=== PATIENT | male | born 1985 | race Caucasian/White ===

== ENCOUNTER 2016-04-19 20:24 | Emergency (ER) | payer MEDICAID, OTHER ==
[~2016-04-19] VITALS: Ht 190.5 cm; Wt 145.1 kg
[2016-04-19 21:40] LABS: Basophils # (auto) 0 uL; Basophils % (auto) 0.2 % (0.0-2.0); Eosinophils # (auto) 0.2 uL; Eosinophils % (auto) 2.3 % (0.0-7.0); Hematocrit 48.1 % (41.0-53.0); Hemoglobin 16.1 g/dL (13.5-17.5); Lymphocytes # (auto) 1.1 uL; Lymphocytes % (auto) 12.2 % (10.0-50.0); Mean Corpuscular Hemoglobin 28.3 pg (28.0-32.0); Mean Corpuscular Hgb Conc. 33.4 g/dL (32.0-36.0); Mean Corpuscular Volume 84.7 fL (80.0-100.0); Mean Platelet Volume 8.4 fL (7.4-10.4); Monocytes # (auto) 0.1 uL; Monocytes % (auto) 1.6 % (0.0-12.0); Neutrophils # (auto) 7.6 uL; Neutrophils % (auto) 83.7 % (37.0-80.0); Platelet Count (auto) 288 10^3/uL (140-450); Red Cell Distribution Width 13.5 % (11.6-16.0); White Blood Cell 9.1 10^3/uL (4.4-10.8)
[2016-04-19 21:49] LABS: Albumin 3.9 g/dL (3.4-5.0); BUN/Creatinine Ratio 12.4; Calcium 8.5 mg/dL (8.5-10.1); Potassium 3.9 mmol/L (3.5-5.1)
[2016-04-19 21:51] LABS: Bilirubin, Total 0.4 mg/dL (0.2-1.0); Total Protein 7.6 g/dL (6.4-8.2)
[2016-04-20 03:15] VITALS: BP 130/75
== END 2016-04-20 03:40 | disposition home or self-care (01) ==
LOC: ER 20:29
DX: K52.9 Noninfective gastroenteritis and colitis, unspecified (principal); Z90.49 Acquired absence of other specified parts of digestive tract
CPT/HCPCS: 36415; 80053; 85025

== ENCOUNTER 2016-10-02 17:02 | Emergency (ER) | payer MEDICAID, OTHER ==
[~2016-10-02] VITALS: Ht 190.5 cm; Wt 147.4 kg
[2016-10-02 17:09] VITALS: BP 130/80
== END 2016-10-02 17:44 | disposition home or self-care (01) ==
LOC: ER 17:05
DX: S60.561A Insect bite (nonvenomous) of right hand, initial encounter (principal); W57.XXXA Bitten or stung by nonvenomous insect and other nonvenomous arthropods, initial encounter; Y93.89 Activity, other specified; Y99.8 Other external cause status; Y92.89 Other specified places as the place of occurrence of the external cause

== ENCOUNTER 2021-01-27 01:34 | Emergency (ER) | payer SELFPAY ==
[~2021-01-27] VITALS: Ht 190.5 cm; Wt 166.9 kg
[2021-01-27 05:25] VITALS: BP 133/90
== END 2021-01-27 05:42 | disposition home or self-care (01) ==
LOC: ER 01:35
DX: J06.9 Acute upper respiratory infection, unspecified (principal); R09.81 Nasal congestion; R51.9 Headache, unspecified; R53.83 Other fatigue; E66.9 Obesity, unspecified; Z68.41 Body mass index [BMI] 40.0-44.9, adult; Z90.49 Acquired absence of other specified parts of digestive tract; Z20.822 Contact with and (suspected) exposure to COVID-19
CPT/HCPCS: 36415; 71045; 87426; 87804

== ENCOUNTER 2022-12-18 11:31 | Emergency (ER) | payer OTHER ==
[~2022-12-18] VITALS: Ht 190.5 cm; Wt 179.6 kg
[2022-12-18 12:27] LABS: Chloride 109 mmol/L (98-107); Potassium 3.9 mmol/L (3.5-5.1); Sodium 140 mmol/L (136-145)
[2022-12-18 12:28] LABS: Anion Gap 6 (5-15); Calcium 9.1 mg/dL (8.7-10.4); Carbon Dioxide 25 mmol/L (20-30)
[2022-12-18 12:30] LABS: Basophils # (auto) 0.1 10 ^3/uL (0-0.2); Basophils % (auto) 0.7 % (0.0-2.0); Eosinophils # (auto) 0.4 10 ^3/uL (0-0.8); Eosinophils % (auto) 3.8 % (0.0-7.0); Hematocrit 48.2 % (41.0-53.0); Lymphocytes # (auto) 2.2 10 ^3/uL (0.4-5.4); Mean Corpuscular Hemoglobin 27.8 pg (28.0-32.0); Mean Corpuscular Hgb Conc. 33.2 g/dL (32.0-36.0); Mean Corpuscular Volume 83.8 fL (80.0-100.0); Monocytes # (auto) 0.6 10 ^3/uL (0-1.3); Monocytes % (auto) 5.8 % (0.0-12.0); Neutrophils # (auto) 6.7 10 ^3/uL (1.6-8.6); Neutrophils % (auto) 67.7 % (37.0-80.0); Nucleated Red Blood Cells % 0.1 %; Red Blood Cells 5.75 10^6/uL (4.5-5.90); Red Cell Distribution Width 14.3 % (11.8-14.3); White Blood Cell 9.9 10^3/uL (4.4-10.8)
[2022-12-18 12:33] LABS: BUN/Creatinine Ratio 9.8 (10.0-20.0); Blood Urea Nitrogen 9 mg/dL (9-23); Glucose 108 mg/dL (74-106); Magnesium 2.2 mg/dL (1.6-2.6)
[2022-12-18 12:35] VITALS: BP 136/98; PULSE 83; RESP 83; TEMP 98; O2SAT 97
[2022-12-18 13:13] LABS: Amphetamine Screen, Urine Neg (NEGATIVE); Barbiturate Scree,Urine Neg (NEGATIVE); Benzodiazephine Screen, Urine Neg (NEGATIVE); Cannabinoid Screen, Urine Neg (NEGATIVE); Cocaine Screen, Urine Neg (NEGATIVE); Opiate Scree,Urine Neg (NEGATIVE); Phencyclidine Screen, Urine Neg (NEGATIVE)
[2022-12-18 13:15] LABS: Urine Bacteria NONE SEEN /hpf (None Seen); Urine Blood Negative /uL (Negative); Urine Clarity HAZY (Clear); Urine Color Yellow (Yellow); Urine Hyaline Cast FEW /lpf (0 - 2); Urine Mucus FEW (None Seen); Urine Protein, UAD TRACE (Negative); Urine Specific Gravity 1.029 (1.001-1.035); Urine Urobilinogen Normal (Negative); Urine WBC 2 /hpf (0 - 3); Urine pH 5.5 (5.0-8.0)
[2022-12-18] MEDS ORDERED: AUG875T PO (13:40)
[2022-12-18] MEDS ORDERED: MECL1TAB42 PO (13:40)
== END 2022-12-18 13:43 | disposition home or self-care (01) ==
LOC: ER 11:31
DX: H61.21 Impacted cerumen, right ear (principal); H66.91 Otitis media, unspecified, right ear; R42 Dizziness and giddiness
CPT/HCPCS: 36415; 70450; 80048; 80307; 81001; 83735; 85025

== ENCOUNTER 2024-05-05 20:35 | Emergency (ER) | payer OTHER ==
[~2024-05-05] VITALS: Ht 190.5 cm; Wt 178.1 kg
[~2024-05-05 20:35] MED LIST: AUG875T PO; MECL1TAB42 PO
--- NOTE | 2024-05-05 21:19 | ED.PDOC ---
Eye-HPI HPI Comments PRESENTS TO ED FOR LEFT EARACHE X 3 DAYS. REPORTS RINGING AND PRESSURE. USED OTC EAR DROPS WITHOUT IMPROVEMENT IN SYMPTOMS. DENIES HEARING LOSS FEVERS OR CHILLS. Chief Complaint: Earache Time Seen by MD: 20:45 Primary Care Provider: JEREMY Reviewed Notes: Nurses Notes, Medications, Allergies Allergies: Coded Allergies: NO KNOWN ALLERGIES (Unverified , 04/20/15) Home Meds Active Scripts Methylprednisolone (Medrol Dosepak) 4 Mg Pa, 4 MG PO UD for 6 Days, #21 TAB UAD Prov:BEBE WEEMSGarfield PINO 05/05/24 Cefdinir (Cefdinir) 300 Mg Cap, 1 CAP PO BID for 7 Days, #14 CAP Prov:MANAV WEEMS 05/05/24 Meclizine HCl (Meclizine 25) 25 Mg Tab, 25 MG PO TID, #30 TAB Prov:AMADA SCHROEDER 12/18/22 Amoxicillin & Pot Clavulanate (AUGMENTIN TABLET) 875 Mg Tb, 875 MG PO BID for 10 Days, #20 TAB Prov:AMADA SCHROEDER 12/18/22 Information Source: Patient Mode of Arrival: Ambulatory Past Medical History PAST MEDICAL HISTORY: Denies Surgical History: Cholecystectomy Family History Family History: Reviewed,noncontributory to illness Social History Smoker: Non-Smoker Alcohol: Denies ETOH Use Drugs: Denies Drug Use Lives In: Home Constitutional: denies: chills, diaphoresis, fatigue, fever, malaise, sweats, weakness, others EENTM: reports: ear pain; denies: blurred vision, double vision, ear bleeding, ear discharge, ear drainage, ear ringing, eye pain, eye redness, hearing loss, mouth pain, mouth swelling, nasal discharge, nose bleeding, nose congestion, nose pain, photophobia, tearing, throat pain, throat swelling, voice changes, others Respiratory: denies: cough, hemoptysis, orthopnea, SOB at rest, shortness of breath, SOB with excertion, stridor, wheezing, others Cardiovascular: denies: chest pain, dizzy spells, diaphoresis, Dyspnea on exertion, edema, irregular heart beat, left arm pain, lightheadedness, palpitations, PND, syncope, others Gastrointestinal: denies: abdomen distended, abdominal pain, blood streaked bowels, constipated, diarrhea, dysphagia, difficulty swallowing, hematemesis, melena, nausea, poor appetite, poor fluid intake, rectal bleeding, rectal pain, vomiting, others Genitourinary: denies: burning, dysuria, flank pain, frequency, hematuria, incontinence, penile discharge, penile sore, pain, testicle pain, testicle swelling, urgency, others Neurological: denies: dizziness, fainting, headache, left sided numbness, left sided weakness, numbness, paresthesia, pre-existing deficit, right sided numbness, right sided weakness, seizure, speech problems, tingling, tremors, weakness, others Musculoskeletal: denies: back pain, gout, joint pain, joint swelling, muscle pain, muscle stiffness, neck pain, others Integumetry: denies: bruises, change in color, change in hair/nails, dryness, laceration, lesions, lumps, rash, wounds, others Allergic/Immunocompromised: denies: Difficulty Healing, Frequent Infections, Hives, Itching, others Hematologic/Lymphatic: denies: anemia, blood clots, easy bleeding, easy bruising, swollen glands, others Endocrine: denies: excessive hunger, excessive sweating, excessive thirst, excessive urination, flushing, intolerance to cold, intolerance to heat, unexplained weight gain, unexplained weight loss, others Psychiatric: denies: anxiety, bipolar disorder, depression, hopeless, panic disorder, schizophrenia, sleepless, suicidal, others Physical Exam General Appearance: No Apparent Distress, Normal HEENT: Normal ENT Inspection, Pharynx Normal, Other (MODERATE AMOUNT OF EAR WAX. YOUR WAX CLEARED NOTED ERYTHEMIC AND BULGING TM NON PERFORATED NO NOTED DRAINAGE) Neck: Full Range of Motion, Non-Tender, Normal, Normal Inspection Respiratory: Chest Non-Tender, Lungs Clear, No Accessory Muscle Use, No Respiratory Distress, Normal Breath Sounds Cardiovascular: No Edema, No JVD, No Murmur, No Gallop, Normal Peripheral Pul ses, Regular Rate/Rhythm Breast Exam: Deferred Gastrointestinal: No Organomegaly, Non Tender, No Pulsatile Mass, Normal Bowel Sounds, Soft Genitalia: Deferred Pelvic: Deferred Rectal: Deferred Extremities: No calf tenderness, Normal capillary refill, Normal inspection, Normal range of motion, Non-tender, No pedal edema Musculoskeletal : Apperance: Normal Neurologic: Alert, simulation software engineer II-XII nml as Tested, No Motor Deficits, Normal Affect, Normal Mood, No Sensory Deficits Cerebellar Function: Normal Reflexes: Normal Skin: Dry, Normal Color, Warm Lymphatic: No Adenopathy Was a procedure done? Was a procedure done?: No EENT DIFF Eye: N/A Ear: Cerumen Impaction, Foreign Body, Otitis Externa, Otitis Media, Perforation X-Ray, Labs, Meds, VS Vital Signs Date Time Temp Pulse Resp B/P (MAP) Pulse Ox O2 Delivery O2 Flow Rate FiO2 05/05/24 21:21 83 16 96 Room Air 05/05/24 21:21 98.3 83 16 175/96 (122) 96 98.3 05/05/24 20:50 98.3 83 16 175/96 (122) 96 98.3 X-Ray, Labs, Meds, VS Comment EAR IMPACTION REMOVED PATIENT TOLERATED WELL. SCRIPT ANTIBIOTICS AND STEROID. MEDICATIONS PRESCRIBED SIDE EFFECTS DISCUSSED FOLLOW UP WITH YOUR PCP IN 1-2 DAYS. [id number] TYLENOL OR MOTRIN NEEDED FOR THE PAIN PER LABELED DOSING INSTRUCTIONS. ER RETURN PRECAUTIONS GIVEN PATIENT INDICATES UNDERSTANDING AGREES WITH DISCHARGE PLAN OF CARE. Time of 1ST Reevaluation: 21:16 Reevaluation 1ST: Improved Patient Education/Counseling: Diagnosis, Treatment, Prognosis, Need For Follow Up Family Education/Counseling: No Family Present Departure 1 Departure Time of Disposition: 21:30 Impression: Primary Impression: Otitis media of left ear Qualified Codes: H66.92 - Otitis media, unspecified, left ear Disposition: HOME / SELF CARE / HOMELESS Condition: Stable e-Prescriptions Methylprednisolone (Medrol Dosepak) 4 Mg Pa 4 MG PO UD for 6 Days, #21 TAB UAD Prov: MANAV WEEMS 05/05/24 Cefdinir (Cefdinir) 300 Mg Cap 1 CAP PO BID for 7 Days, #14 CAP Prov: MANAV WEEMS 05/05/24 Discharged With: Self Critical Care Note Critical Care Time?: No Stability Stability form required: MANAV Ace May 05, 2024 21:19
[2024-05-05 21:21] VITALS: BP 175/96; PULSE 83; RESP 16; TEMP 98.3; O2SAT 96
[2024-05-05] MEDS ORDERED: METH4PAK PO (21:32)
[2024-05-05] MEDS ORDERED: CEFD300C2 PO (21:32)
== END 2024-05-05 21:36 | disposition home or self-care (01) ==
LOC: ER 20:35
DX: H66.92 Otitis media, unspecified, left ear (principal); Z90.49 Acquired absence of other specified parts of digestive tract